=== PATIENT | male | born 1955 | race Caucasian/White ===

== ENCOUNTER 2017-10-09 16:48 | Emergency (ER) | payer MEDICARE, OTHER ==
[~2017-10-09] VITALS: Ht 188 cm; Wt 69.1 kg
[~2017-10-09 16:48] MED LIST: ACET325T14 PO; ACET325T26 PO; ACID1GRA3 PO; ACID1TAB3 PO; ACID1TAB7 PO; ACIDOPHILUS PROB1 MG PO; AMLO10TA2 PO; AMLO5TAB2 PO; AMOX1TAB64 PO; ASCO10004 PO; ATOR40TA PO; BISA10SU2 PR; BUME2TAB PO; CARV-39 PO; CEFT1VIA20 IM; CHLO25TA4 PO; CLON0.2T PO; CLON0.3T47 PO; DAPT500V6 IV; DARB100V SQ; DARB60DI SC; DARB60VI SC; DOCU100C33 PO; DOXY100C PO; ERTA1VIA IM; ERTA1VIA IV; FAMO20TA7 PO; GABA-826 PO; HEPA50002 SQ; HEPA500024 SC; HEPA50004 SQ; HIGH BLOOD PRESSURE; HYDR-3237 PO; HYDR-3240 PO; HYDR-3341 PO; HYDR-3342 PO; HYDR-3343 PO; HYDR20TA22 PO; INSU100C5 SQ-INSULIN; INSU100I28 SQ; INSU100V13 SQ; LACT-103 PO; LISI-170 PO; LOSA100T2 PO; METF500T4 PO; MINO10TA PO; ONDA4TAB7 PO; PANT40TA3 PO; PANT40TA5 PO; POLY17PO5 PO; POTA20TA14 PO; SEVE800T8 PO; SPIR50TA PO; SULF1TAB24 PO; TAMS-11 PO; TAMS0.4C2 PO; TRAM50TA2 PO; VANC125C2 PO; VANC1VIA3 PO; ZOLP5TAB6 PO; [UNRECOGNIZED DRUG - CODE] IV; [UNRECOGNIZED DRUG - CODE] XX
[2017-10-09 20:28] VITALS: BP 170/74
[2017-10-09] MEDS ORDERED: OXYcodone/APAP 5/325MG TABLET ONE (20:28)
[2017-10-09] MEDS ORDERED: DIAZEPAM 5 MG TABLET ONE (20:28)
[2017-10-09] MEDS ORDERED: DIAZEPAM 5 MG TABLET PO ONE (20:30)
[2017-10-09] MEDS ORDERED: OXYcodone/APAP 5/325MG TABLET PO ONE (20:30)
== END 2017-10-09 22:30 | disposition home or self-care (01) ==
LOC: ED 19:42
DX: S43.102A Unspecified dislocation of left acromioclavicular joint, initial encounter (principal); I10 Essential (primary) hypertension; E11.9 Type 2 diabetes mellitus without complications; G89.29 Other chronic pain; M25.512 Pain in left shoulder; N40.0 Benign prostatic hyperplasia without lower urinary tract symptoms; Z99.2 Dependence on renal dialysis; W22.8XXA Striking against or struck by other objects, initial encounter; Y93.89 Activity, other specified; Y99.8 Other external cause status; Y92.89 Other specified places as the place of occurrence of the external cause
CPT/HCPCS: 72072; 99284

== ENCOUNTER 2018-01-23 10:57 | Emergency (ER) | payer OTHER ==
[~2018-01-23] VITALS: Ht 188 cm; Wt 70.0 kg
[2018-01-23] MEDS ORDERED: CALC667C PO (11:28)
[2018-01-23] MEDS ORDERED: FINA5TAB PO (11:28)
[2018-01-23] MEDS ORDERED: HYDR-3240 PO (11:28)
[2018-01-23] MEDS ORDERED: METH4TAB7 PO (11:28)
[2018-01-23] MEDS ORDERED: DICL100G19 EXT (11:28)
[2018-01-23] MEDS ORDERED: NUT.237L71 PO (11:28)
[2018-01-23 11:53] LABS: BASOPHILS # (AUTO) 0.02 x10^3/uL (0-0.1); BASOPHILS % (AUTO) 0 % (0-1); EOSINOPHILS % (AUTO) 0 % (1-7); LYMPHOCYTES # (AUTO) 0.88 x10^3/uL (1-3.4); LYMPHOCYTES % (AUTO) 9 % (22-44); MD NO; MEAN CORPUSCULAR HEMOGLOBIN 32.1 pg (27.5-34.5); MEAN CORPUSCULAR HGB CONC 33.3 g/dL (33.2-36.2); MEAN CORPUSCULAR VOLUME 96.4 fL (81-97); MEAN PLATELET VOLUME 6.6 fL (7.4-10.4); MONOCYTES # (AUTO) 0.33 x10^3/uL (0.2-0.8); MONOCYTES % (AUTO) 3 % (2-9); NEUTROPHILS # (AUTO) 8.47 x10^3/uL (1.8-6.8); NEUTROPHILS % (AUTO) 87 % (42-75); PLATELET COUNT 395 x10^3/uL (130-400); RED BLOOD COUNT 3.53 x10^6/uL (4.38-5.82); RED CELL DISTRIBUTION WIDTH 13.6 % (9.4-14.8)
[2018-01-23] MEDS ORDERED: SODIUM CHLORIDE 0.9% 1,000ML IVBOLUS ONE (12:00)
[2018-01-23] MEDS ORDERED: SODIUM CHLORIDE FLUSH 10ML SYR IVF ONE (12:00)
[2018-01-23 12:02] LABS: INTERNATIONAL NORMALIZED RATIO 1.04 (0.93-1.1); PROTHROMBIN TIME 10.7 Seconds (9.6-11.5)
[2018-01-23 12:05] LABS: ALANINE AMINOTRANSFERASE 18 U/L (12-78); ALBUMIN 3.4 g/dL (3.4-5.0); ANION GAP 12 mmol/L (5-15); CALCIUM 8.6 mg/dL (8.5-10.1); CHLORIDE 94 mmol/L (98-107); CREATININE 4.49 mg/dL (0.7-1.3)
[2018-01-23 12:07] LABS: ALKALINE PHOSPHATASE 71 U/L (45-117); BILIRUBIN,TOTAL 0.3 mg/dL (0.2-1.0); TOTAL PROTEIN 7.5 g/dL (6.4-8.2)
[2018-01-23 12:07] LABS: CULTURE INDICATED? YES; MICROSCOPIC INDICATED
[2018-01-23 16:38] VITALS: BP 154/69
== END 2018-01-23 17:44 | disposition home or self-care (01) ==
LOC: ED 13:22
DX: E11.22 Type 2 diabetes mellitus with diabetic chronic kidney disease (principal); I13.0 Hypertensive heart and chronic kidney disease with heart failure and stage 1 through stage 4 chronic kidney disease, or unspecified chronic kidney disease; N18.9 Chronic kidney disease, unspecified; M06.9 Rheumatoid arthritis, unspecified; I95.9 Hypotension, unspecified; E11.21 Type 2 diabetes mellitus with diabetic nephropathy; R82.99 Other abnormal findings in urine
CPT/HCPCS: 36415; 80053; 81001; 83605; 85025; 85610; 85730; 86850; 86900; 87086; 93005; 99285

== ENCOUNTER 2018-10-08 11:28 | Inpatient (IN) | payer MEDICARE, MEDICAID ==
[~2018-10-08] VITALS: Ht 188 cm; Wt 77.2 kg
[~2018-10-08 11:28] MED LIST changes: +AMLO-150 PO; -AMLO10TA2 PO; +AMLO10TA6 PO; -AMLO5TAB2 PO; +CALC667C PO; +DICL100G19 EXT; +FINA5TAB PO; +METF500T17 PO; -METF500T4 PO; +METH4TAB7 PO; +NUT.237L71 PO
[2018-10-08] MEDS ORDERED: ONDANSETRON 2MG/ML, 2ML IVPush ONE (12:00)
[2018-10-08] MEDS ORDERED: SODIUM CHLORIDE 0.9% 1,000ML IVBOLUS ONE (12:00)
[2018-10-08] MEDS ORDERED: ONDANSETRON 2MG/ML, 2ML ONE (12:01)
[2018-10-08] MEDS ORDERED: MORPHINE SULFATE 4 MG/ML, 1ML ONE ×2 (12:01→13:23)
[2018-10-08] MEDS: MORPHINE SULFATE 4 MG/ML, 1ML IVPush PRN ×2 (12:08→13:29)
--- NOTE | 2018-10-08 12:20 | NUR ---
patient ALVIN XAVIER from the [facility] home. at approx 0390 today he developed RUQ and RLQ sharp abdominal pain, N/V/D. 4x episodes of emesis, one diarrhea, no blood noted in these. 4 mg PO zofran given by EMS, at this time this RN has started IV, medicated per DEC, 500 mL NS bolus running wide open, patient safe in [facility] with call light in reach and VSS after putting patient on 2L of oxygen via NC. patient only required oxygen after morphine admin. no additional needs at this time.
[2018-10-08 12:34] LABS: BASOPHILS # (AUTO) 0.05 x10^3/uL (0-0.1); BASOPHILS % (AUTO) 0 % (0-1); EOSINOPHILS # (AUTO) 0.44 x10^3/uL (0-0.4); EOSINOPHILS % (AUTO) 4 % (1-7); LYMPHOCYTES # (AUTO) 1.39 x10^3/uL (1-3.4); LYMPHOCYTES % (AUTO) 12 % (22-44); MD NO; MEAN CORPUSCULAR HEMOGLOBIN 32.5 pg (27.5-34.5); MEAN CORPUSCULAR HGB CONC 33.6 g/dL (33.2-36.2); MEAN CORPUSCULAR VOLUME 96.7 fL (81-97); MEAN PLATELET VOLUME 7.1 fL (7.4-10.4); MONOCYTES # (AUTO) 0.86 x10^3/uL (0.2-0.8); MONOCYTES % (AUTO) 7 % (2-9); NEUTROPHILS # (AUTO) 9.26 x10^3/uL (1.8-6.8); NEUTROPHILS % (AUTO) 77 % (42-75); PLATELET COUNT 314 x10^3/uL (130-400); RED BLOOD COUNT 3.92 x10^6/uL (4.38-5.82); RED CELL DISTRIBUTION WIDTH 14.1 % (9.4-14.8)
[2018-10-08 12:43] LABS: ALANINE AMINOTRANSFERASE 18 U/L (12-78); ANION GAP 8 mmol/L (5-15); CALCIUM 9.6 mg/dL (8.5-10.1); CHLORIDE 102 mmol/L (98-107); CREATININE 4.68 mg/dL (0.7-1.3); PROTHROMBIN TIME 10.6 Seconds (9.6-11.5)
[2018-10-08 12:46] LABS: ALKALINE PHOSPHATASE 78 U/L (45-117); BILIRUBIN,TOTAL 0.4 mg/dL (0.2-1.0)
--- NOTE | 2018-10-08 13:30 | NUR ---
patient medicated with 2nd morphine dose per DEC, going to CT scan now via gurney, intermittent nausea again prior to 2nd morphine dose. 500mL bolus finished, hypertensive 200/90, updated.
[2018-10-08] MEDS ORDERED: PIPERACILLIN/TAZO/PMX 3.375GM 50 ML ONE (14:52)
[2018-10-08] MEDS ORDERED: METOCLOPRAMIDE 5 MG/ML, 2ML ONE (14:52)
[2018-10-08] MEDS ORDERED: SODIUM CHLORIDE 0.9% 1,000 ML IV SCH (15:00)
[2018-10-08] MEDS ORDERED: PIPERACILLIN/TAZO/PMX 3.375GM 50 ML IV ONE (15:00)
[2018-10-08] MEDS ORDERED: OMNIPAQUE 350 MG/ML, 100ML BOTTLE ONE (15:10)
--- NOTE | 2018-10-08 15:28 | NUR ---
report to SILVINO hui, patient updated of transfer plan, no acute changes now, RTG status.
[2018-10-08 15:44] LABS: CLOSTRIDIUM DIFFICILE ANTIGEN POSITIVE; CLOSTRIDIUM DIFFICILE TOXIN NEGATIVE (Negative)
--- NOTE | 2018-10-08 15:50 | NUR ---
lab called to report C. Diff antigen positive, toxin negative.
[2018-10-08 16:24] VITALS: BP 152/79
[2018-10-08] MEDS: SODIUM CHLORIDE 0.9% 1,000 ML IV SCH (17:43)
[2018-10-08] MEDS: VANCOMYCIN 50 MG/ML ORAL SUSP PO SCH ×2 (17:43→22:37)
[2018-10-08] MEDS: METRONIDAZOLE PMX 500MG/100ML 100 ML IV SCH (17:43)
[2018-10-08 20:11] VITALS: BP 153/76
[2018-10-08] MEDS: PANTOPRAZOLE 40 MG IV IVPush SCH (20:49)
[2018-10-09] MEDS: METRONIDAZOLE PMX 500MG/100ML 100 ML IV SCH ×3 (01:22→17:27)
[2018-10-09] MEDS: SODIUM CHLORIDE 0.9% 1,000 ML IV SCH ×3 (01:22→19:29)
[2018-10-09 01:24] VITALS: BP 151/77
[2018-10-09] MEDS ORDERED: MORPHINE SULFATE 4 MG/ML, 1ML ONE (01:30)
[2018-10-09] MEDS: morphine SULFATE 10 MG/ML, 1ML IVPush PRN ×2 (01:34→22:30)
[2018-10-09] MEDS: VANCOMYCIN 50 MG/ML ORAL SUSP PO SCH ×4 (04:43→22:17)
[2018-10-09 06:10] LABS: CHLORIDE 106 mmol/L (98-107)
[2018-10-09 06:11] LABS: BASOPHILS # (AUTO) 0.05 x10^3/uL (0-0.1); BASOPHILS % (AUTO) 1 % (0-1); EOSINOPHILS # (AUTO) 0.35 x10^3/uL (0-0.4); EOSINOPHILS % (AUTO) 3 % (1-7); LYMPHOCYTES # (AUTO) 1.69 x10^3/uL (1-3.4); LYMPHOCYTES % (AUTO) 16 % (22-44); MD NO; MEAN CORPUSCULAR HEMOGLOBIN 32.3 pg (27.5-34.5); MEAN CORPUSCULAR HGB CONC 33.3 g/dL (33.2-36.2); MEAN CORPUSCULAR VOLUME 97.1 fL (81-97); MEAN PLATELET VOLUME 7.1 fL (7.4-10.4); MONOCYTES # (AUTO) 0.84 x10^3/uL (0.2-0.8); MONOCYTES % (AUTO) 8 % (2-9); NEUTROPHILS # (AUTO) 7.71 x10^3/uL (1.8-6.8); NEUTROPHILS % (AUTO) 72 % (42-75); PLATELET COUNT 262 x10^3/uL (130-400); RED BLOOD COUNT 3.26 x10^6/uL (4.38-5.82); RED CELL DISTRIBUTION WIDTH 13.9 % (9.4-14.8)
[2018-10-09 06:17] LABS: ALANINE AMINOTRANSFERASE 13 U/L (12-78); ALBUMIN 3.3 g/dL (3.4-5.0); ALKALINE PHOSPHATASE 63 U/L (45-117); ANION GAP 9 mmol/L (5-15); BILIRUBIN,TOTAL 0.4 mg/dL (0.2-1.0); CALCIUM 8.4 mg/dL (8.5-10.1); CREATININE 4.91 mg/dL (0.7-1.3); TOTAL PROTEIN 6.7 g/dL (6.4-8.2)
[2018-10-09 09:17] VITALS: BP 151/65
[2018-10-09] MEDS: PANTOPRAZOLE 40 MG IV IVPush SCH ×2 (09:21→22:17)
[2018-10-09 13:44] LABS: ABSOLUTE RETICS # 0.039 x10^6/uL (0.5-1.5); RED BLOOD COUNT 2.97 x10^6/uL (4.38-5.82); RETICULOCYTE COUNT % 1.33 % (0.5-1.5)
[2018-10-09] MEDS ORDERED: DARBEPOETIN 100 MCG/ML SQ SCH (14:00)
[2018-10-09] MEDS ORDERED: ARANESP 25 MCG/ML **ESRD SQ SCH (14:00)
[2018-10-09 14:17] VITALS: BP 128/63
[2018-10-09 19:01] VITALS: BP 147/71
[2018-10-10] MEDS: METRONIDAZOLE PMX 500MG/100ML 100 ML IV SCH ×3 (01:07→16:48)
[2018-10-10] MEDS: morphine SULFATE 10 MG/ML, 1ML IVPush PRN ×3 (01:40→17:00)
[2018-10-10 01:55] VITALS: BP 146/65
[2018-10-10] MEDS: SODIUM CHLORIDE 0.9% 1,000 ML IV SCH ×3 (03:50→20:38)
[2018-10-10] MEDS: VANCOMYCIN 50 MG/ML ORAL SUSP PO SCH ×4 (03:58→23:24)
[2018-10-10 05:54] LABS: ALBUMIN 2.9 g/dL (3.4-5.0); ANION GAP 5 mmol/L (5-15); CALCIUM 7.7 mg/dL (8.5-10.1); CHLORIDE 104 mmol/L (98-107)
[2018-10-10 05:55] LABS: BASOPHILS # (AUTO) 0.04 x10^3/uL (0-0.1); BASOPHILS % (AUTO) 0 % (0-1); EOSINOPHILS # (AUTO) 0.54 x10^3/uL (0-0.4); EOSINOPHILS % (AUTO) 6 % (1-7); LYMPHOCYTES # (AUTO) 1.65 x10^3/uL (1-3.4); LYMPHOCYTES % (AUTO) 20 % (22-44); MD NO; MEAN CORPUSCULAR HEMOGLOBIN 32.7 pg (27.5-34.5); MEAN CORPUSCULAR HGB CONC 34.1 g/dL (33.2-36.2); MONOCYTES # (AUTO) 0.75 x10^3/uL (0.2-0.8); MONOCYTES % (AUTO) 9 % (2-9); NEUTROPHILS # (AUTO) 5.44 x10^3/uL (1.8-6.8); NEUTROPHILS % (AUTO) 65 % (42-75); PLATELET COUNT 244 x10^3/uL (130-400); RED BLOOD COUNT 2.94 x10^6/uL (4.38-5.82); RED CELL DISTRIBUTION WIDTH 13.7 % (9.4-14.8)
[2018-10-10 05:59] LABS: ALANINE AMINOTRANSFERASE 14 U/L (12-78); ALKALINE PHOSPHATASE 55 U/L (45-117); BILIRUBIN,TOTAL 0.4 mg/dL (0.2-1.0); CREATININE 3.28 mg/dL (0.7-1.3)
[2018-10-10 08:23] VITALS: BP 180/73
[2018-10-10] MEDS: PANTOPRAZOLE 40 MG IV IVPush SCH ×2 (09:33→20:38)
[2018-10-10 13:36] VITALS: BP 179/64
[2018-10-10] MEDS: hydrALAzine 20 MG/ML, 1ML IVPush PRN (16:48)
[2018-10-10] MEDS: FERROUS SULFATE 325 MG TABLET PO SCH (16:48)
[2018-10-10 19:46] VITALS: BP 150/65
[2018-10-10] MEDS: ONDANSETRON 2MG/ML, 2ML IVPush PRN (21:12)
[2018-10-11] MEDS: METRONIDAZOLE PMX 500MG/100ML 100 ML IV SCH ×3 (01:02→16:40)
[2018-10-11 04:40] VITALS: BP 188/86
[2018-10-11] MEDS: hydrALAzine 20 MG/ML, 1ML IVPush PRN ×2 (04:46→13:21)
[2018-10-11] MEDS: VANCOMYCIN 50 MG/ML ORAL SUSP PO SCH ×4 (05:03→22:02)
[2018-10-11] MEDS: SODIUM CHLORIDE 0.9% 1,000 ML IV SCH ×2 (05:03→16:40)
[2018-10-11 05:22] LABS: BASOPHILS # (AUTO) 0.04 x10^3/uL (0-0.1); BASOPHILS % (AUTO) 1 % (0-1); EOSINOPHILS % (AUTO) 4 % (1-7); LYMPHOCYTES # (AUTO) 1.32 x10^3/uL (1-3.4); LYMPHOCYTES % (AUTO) 18 % (22-44); MD NO; MEAN CORPUSCULAR HEMOGLOBIN 33.2 pg (27.5-34.5); MEAN CORPUSCULAR HGB CONC 34.5 g/dL (33.2-36.2); MEAN CORPUSCULAR VOLUME 96.3 fL (81-97); MEAN PLATELET VOLUME 6.9 fL (7.4-10.4); MONOCYTES # (AUTO) 0.63 x10^3/uL (0.2-0.8); MONOCYTES % (AUTO) 9 % (2-9); NEUTROPHILS # (AUTO) 4.89 x10^3/uL (1.8-6.8); NEUTROPHILS % (AUTO) 68 % (42-75); PLATELET COUNT 257 x10^3/uL (130-400); RED BLOOD COUNT 3.05 x10^6/uL (4.38-5.82); RED CELL DISTRIBUTION WIDTH 14.3 % (9.4-14.8)
[2018-10-11 05:30] LABS: ANION GAP 7 mmol/L (5-15); CALCIUM 7.7 mg/dL (8.5-10.1); CHLORIDE 107 mmol/L (98-107)
[2018-10-11 05:33] LABS: ALANINE AMINOTRANSFERASE 10 U/L (12-78); ALKALINE PHOSPHATASE 57 U/L (45-117); BILIRUBIN,TOTAL 0.6 mg/dL (0.2-1.0); CREATININE 4.31 mg/dL (0.7-1.3)
[2018-10-11 07:46] VITALS: BP 163/73
[2018-10-11] MEDS: CALCITRIOL 0.5 MCG CAPSULE PO SCH (08:39)
[2018-10-11] MEDS: FERROUS SULFATE 325 MG TABLET PO SCH ×3 (08:40→16:40)
[2018-10-11] MEDS: ONDANSETRON 2MG/ML, 2ML IVPush PRN ×3 (08:40→22:02)
[2018-10-11] MEDS: PANTOPRAZOLE 40 MG IV IVPush SCH ×2 (08:40→22:01)
[2018-10-11 12:38] VITALS: BP 174/90
[2018-10-11 16:39] VITALS: BP 169/79
[2018-10-11] MEDS: METOPROLOL TARTRATE 50 MG TABLET PO SCH (16:40)
[2018-10-11 19:30] VITALS: BP 167/79
[2018-10-12] VITALS (10 sets, daily range): BP systolic 155–189; BP diastolic 70–86
[2018-10-12] MEDS: METRONIDAZOLE PMX 500MG/100ML 100 ML IV SCH ×3 (01:41→17:11)
[2018-10-12] MEDS: hydrALAzine 20 MG/ML, 1ML IVPush PRN ×2 (03:00→13:41)
[2018-10-12] MEDS: ONDANSETRON 2MG/ML, 2ML IVPush PRN ×3 (04:51→20:40)
[2018-10-12] MEDS: morphine SULFATE 10 MG/ML, 1ML IVPush PRN ×4 (04:51→20:40)
[2018-10-12] MEDS: VANCOMYCIN 50 MG/ML ORAL SUSP PO SCH ×4 (05:01→22:36)
[2018-10-12] MEDS: METOPROLOL TARTRATE 50 MG TABLET PO SCH ×2 (05:02→17:12)
[2018-10-12] MEDS: SODIUM CHLORIDE 0.9% 1,000 ML IV SCH (05:02)
[2018-10-12 05:57] LABS: BASOPHILS # (AUTO) 0.04 x10^3/uL (0-0.1); BASOPHILS % (AUTO) 1 % (0-1); EOSINOPHILS # (AUTO) 0.04 x10^3/uL (0-0.4); EOSINOPHILS % (AUTO) 1 % (1-7); LYMPHOCYTES # (AUTO) 0.93 x10^3/uL (1-3.4); LYMPHOCYTES % (AUTO) 12 % (22-44); MD NO; MEAN CORPUSCULAR HEMOGLOBIN 33.1 pg (27.5-34.5); MEAN CORPUSCULAR HGB CONC 34.2 g/dL (33.2-36.2); MEAN CORPUSCULAR VOLUME 96.7 fL (81-97); MONOCYTES # (AUTO) 0.45 x10^3/uL (0.2-0.8); MONOCYTES % (AUTO) 6 % (2-9); NEUTROPHILS # (AUTO) 6.25 x10^3/uL (1.8-6.8); NEUTROPHILS % (AUTO) 81 % (42-75); PLATELET COUNT 262 x10^3/uL (130-400); RED BLOOD COUNT 3.25 x10^6/uL (4.38-5.82); RED CELL DISTRIBUTION WIDTH 14.1 % (9.4-14.8)
[2018-10-12 06:03] LABS: ANION GAP 13 mmol/L (5-15); CALCIUM 8.1 mg/dL (8.5-10.1); CHLORIDE 108 mmol/L (98-107)
[2018-10-12] MEDS: CALCITRIOL 0.5 MCG CAPSULE PO SCH (08:16)
[2018-10-12] MEDS: FERROUS SULFATE 325 MG TABLET PO SCH ×3 (08:16→17:11)
[2018-10-12] MEDS: PANTOPRAZOLE 40 MG IV IVPush SCH ×2 (08:16→20:40)
[2018-10-13] VITALS (8 sets, daily range): BP systolic 147–191; BP diastolic 55–89
[2018-10-13] MEDS: METRONIDAZOLE PMX 500MG/100ML 100 ML IV SCH ×2 (01:27→09:42)
[2018-10-13] MEDS: morphine SULFATE 10 MG/ML, 1ML IVPush PRN ×4 (03:45→20:18)
[2018-10-13] MEDS: ONDANSETRON 2MG/ML, 2ML IVPush PRN ×2 (03:45→15:04)
[2018-10-13] MEDS: hydrALAzine 20 MG/ML, 1ML IVPush PRN ×4 (03:59→20:18)
[2018-10-13] MEDS: VANCOMYCIN 50 MG/ML ORAL SUSP PO SCH ×4 (04:00→21:51)
[2018-10-13] MEDS: METOPROLOL TARTRATE 50 MG TABLET PO SCH (05:20)
[2018-10-13 05:43] LABS: BASOPHILS # (AUTO) 0.03 x10^3/uL (0-0.1); BASOPHILS % (AUTO) 0 % (0-1); EOSINOPHILS # (AUTO) 0.04 x10^3/uL (0-0.4); EOSINOPHILS % (AUTO) 1 % (1-7); LYMPHOCYTES # (AUTO) 1.06 x10^3/uL (1-3.4); LYMPHOCYTES % (AUTO) 14 % (22-44); MD NO; MEAN CORPUSCULAR HEMOGLOBIN 33.1 pg (27.5-34.5); MEAN CORPUSCULAR HGB CONC 34.5 g/dL (33.2-36.2); MEAN CORPUSCULAR VOLUME 95.9 fL (81-97); MEAN PLATELET VOLUME 7.1 fL (7.4-10.4); MONOCYTES # (AUTO) 0.74 x10^3/uL (0.2-0.8); MONOCYTES % (AUTO) 10 % (2-9); NEUTROPHILS # (AUTO) 5.72 x10^3/uL (1.8-6.8); NEUTROPHILS % (AUTO) 75 % (42-75); PLATELET COUNT 269 x10^3/uL (130-400); RED BLOOD COUNT 3.25 x10^6/uL (4.38-5.82); RED CELL DISTRIBUTION WIDTH 14.1 % (9.4-14.8)
[2018-10-13 06:02] LABS: CHLORIDE 104 mmol/L (98-107)
[2018-10-13 06:09] LABS: ALANINE AMINOTRANSFERASE 13 U/L (12-78); ALBUMIN 3.1 g/dL (3.4-5.0); ALKALINE PHOSPHATASE 50 U/L (45-117); ANION GAP 10 mmol/L (5-15); BILIRUBIN,TOTAL 0.4 mg/dL (0.2-1.0); CREATININE 3.48 mg/dL (0.7-1.3); TOTAL PROTEIN 6.1 g/dL (6.4-8.2)
[2018-10-13] MEDS: PANTOPRAZOLE 40 MG IV IVPush SCH ×2 (09:25→20:04)
[2018-10-13] MEDS: FERROUS SULFATE 325 MG TABLET PO SCH ×3 (09:26→16:51)
[2018-10-13] MEDS: CALCITRIOL 0.5 MCG CAPSULE PO SCH (09:26)
[2018-10-13] MEDS ORDERED: OMEP-110 PO (10:51)
[2018-10-13] MEDS ORDERED: VANC1VIA3 PO (10:51)
[2018-10-13] MEDS ORDERED: FERR-51 PO (10:51)
[2018-10-13] MEDS ORDERED: RIFAXIMIN PO (10:51)
[2018-10-13] MEDS ORDERED: METO50TA82 PO (10:51)
[2018-10-13] MEDS ORDERED: CALC0.5C9 PO (10:51)
[2018-10-13] MEDS: LOSARTAN 50MG TABLET PO SCH (11:02)
[2018-10-13] MEDS: METOPROLOL TARTRATE 100 MG TABLET PO SCH (16:51)
[2018-10-13] MEDS ORDERED: ACETAMINOPHEN 325 MG TABLET PO PRN (17:00)
[2018-10-13] MEDS: RIFAXIMIN 550 MG TABLET PO SCH (20:04)
[2018-10-13] MEDS: AMLODIPINE 5 MG TABLET PO SCH (20:04)
[2018-10-14] MEDS ORDERED: MORPHINE SULFATE 4 MG/ML, 1ML ONE (00:01)
[2018-10-14] MEDS: morphine SULFATE 10 MG/ML, 1ML IVPush PRN ×3 (00:04→10:10)
[2018-10-14] MEDS: VANCOMYCIN 50 MG/ML ORAL SUSP PO SCH ×4 (04:43→22:18)
[2018-10-14 04:44] VITALS: BP 160/77
[2018-10-14] MEDS: METOPROLOL TARTRATE 100 MG TABLET PO SCH ×2 (04:48→17:05)
[2018-10-14 06:17] LABS: BASOPHILS # (AUTO) 0.04 x10^3/uL (0-0.1); BASOPHILS % (AUTO) 1 % (0-1); EOSINOPHILS % (AUTO) 1 % (1-7); LYMPHOCYTES # (AUTO) 0.81 x10^3/uL (1-3.4); LYMPHOCYTES % (AUTO) 10 % (22-44); MD NO; MEAN CORPUSCULAR HEMOGLOBIN 32.9 pg (27.5-34.5); MEAN CORPUSCULAR HGB CONC 34.1 g/dL (33.2-36.2); MEAN CORPUSCULAR VOLUME 96.6 fL (81-97); MEAN PLATELET VOLUME 6.9 fL (7.4-10.4); MONOCYTES # (AUTO) 0.68 x10^3/uL (0.2-0.8); MONOCYTES % (AUTO) 8 % (2-9); NEUTROPHILS # (AUTO) 6.38 x10^3/uL (1.8-6.8); NEUTROPHILS % (AUTO) 80 % (42-75); PLATELET COUNT 260 x10^3/uL (130-400); RED BLOOD COUNT 3.09 x10^6/uL (4.38-5.82); RED CELL DISTRIBUTION WIDTH 13.9 % (9.4-14.8)
[2018-10-14 06:38] LABS: ALBUMIN 2.9 g/dL (3.4-5.0); ANION GAP 10 mmol/L (5-15); CHLORIDE 103 mmol/L (98-107)
[2018-10-14 06:42] LABS: ALANINE AMINOTRANSFERASE 12 U/L (12-78); ALKALINE PHOSPHATASE 46 U/L (45-117); BILIRUBIN,TOTAL 0.4 mg/dL (0.2-1.0); CREATININE 3.96 mg/dL (0.7-1.3); TOTAL PROTEIN 5.7 g/dL (6.4-8.2)
[2018-10-14 08:30] VITALS: BP 147/72
[2018-10-14] MEDS: CALCITRIOL 0.5 MCG CAPSULE PO SCH (09:16)
[2018-10-14] MEDS: AMLODIPINE 5 MG TABLET PO SCH ×2 (09:16→22:18)
[2018-10-14] MEDS: RIFAXIMIN 550 MG TABLET PO SCH ×2 (09:16→22:17)
[2018-10-14] MEDS: PANTOPRAZOLE 40 MG IV IVPush SCH ×2 (09:16→22:18)
[2018-10-14] MEDS: FERROUS SULFATE 325 MG TABLET PO SCH ×3 (09:16→17:04)
[2018-10-14] MEDS: LOSARTAN 50MG TABLET PO SCH (09:16)
[2018-10-14] MEDS ORDERED: POTASSIUM CHLORIDE 40 MEQ in SODIUM CHLORIDE 0.9% 500 ML IV ONE (10:00)
[2018-10-14] MEDS: PSYLLIUM PACKET PO PRN (10:10)
[2018-10-14] MEDS ORDERED: AMLO-150 PO (10:57)
[2018-10-14] MEDS ORDERED: HYDR-3240 PO (11:06)
[2018-10-14] MEDS ORDERED: TRAM50TA2 PO (11:06)
[2018-10-14] MEDS ORDERED: METO-99 PO (11:30)
[2018-10-14] MEDS: ONDANSETRON 2MG/ML, 2ML IVPush PRN ×2 (13:19→22:17)
[2018-10-14 14:22] VITALS: BP 176/77
[2018-10-14 20:56] VITALS: BP 153/99
[2018-10-15 01:20] VITALS: BP 181/73
[2018-10-15] MEDS: hydrALAzine 20 MG/ML, 1ML IVPush PRN (01:43)
[2018-10-15] MEDS: morphine SULFATE 10 MG/ML, 1ML IVPush PRN ×2 (01:43→09:00)
[2018-10-15 03:29] VITALS: BP 154/67
[2018-10-15] MEDS: ONDANSETRON 2MG/ML, 2ML IVPush PRN (03:30)
[2018-10-15] MEDS: VANCOMYCIN 50 MG/ML ORAL SUSP PO SCH ×3 (04:28→16:09)
[2018-10-15] MEDS: METOPROLOL TARTRATE 100 MG TABLET PO SCH ×2 (06:52→17:16)
[2018-10-15 07:30] VITALS: BP 167/75
[2018-10-15] MEDS: LOSARTAN 50MG TABLET PO SCH (09:00)
[2018-10-15] MEDS: PSYLLIUM PACKET PO PRN (09:00)
[2018-10-15] MEDS: PANTOPRAZOLE 40 MG IV IVPush SCH (09:00)
[2018-10-15] MEDS: RIFAXIMIN 550 MG TABLET PO SCH (09:01)
[2018-10-15] MEDS: AMLODIPINE 5 MG TABLET PO SCH (09:01)
[2018-10-15] MEDS: CALCITRIOL 0.5 MCG CAPSULE PO SCH (09:01)
[2018-10-15] MEDS: FERROUS SULFATE 325 MG TABLET PO SCH ×3 (09:01→17:16)
[2018-10-15 13:30] VITALS: BP 173/69
== END 2018-10-15 17:55 | DRG 393 ==
LOC: ED 13:20 → EDIP 14:43 → SUATTDRO 15:14 → 4NOR 16:11
PROVIDERS: ADMIT Internal Medicine; ATTEND Internal Medicine
PROC: 5A1D70Z Performance of Urinary Filtration, Intermittent, Less than 6 Hours Per Day (ICD-10-PCS; principal; 2018-10-09)
PROC: 0D9P70Z Drainage of Rectum with Drainage Device, Via Natural or Artificial Opening (ICD-10-PCS; 2018-10-09)
PROC: 5A1D70Z Performance of Urinary Filtration, Intermittent, Less than 6 Hours Per Day (ICD-10-PCS; 2018-10-12)
PROC: 5A1D70Z Performance of Urinary Filtration, Intermittent, Less than 6 Hours Per Day (ICD-10-PCS; 2018-10-14)
DX: K63.89 Other specified diseases of intestine (principal); N18.6 End stage renal disease; K59.39 Other megacolon; I13.2 Hypertensive heart and chronic kidney disease with heart failure and with stage 5 chronic kidney disease, or end stage renal disease; E46 Unspecified protein-calorie malnutrition; I50.30 Unspecified diastolic (congestive) heart failure; D64.9 Anemia, unspecified; E11.22 Type 2 diabetes mellitus with diabetic chronic kidney disease; E78.5 Hyperlipidemia, unspecified; I25.10 Atherosclerotic heart disease of native coronary artery without angina pectoris; K21.9 Gastro-esophageal reflux disease without esophagitis; M06.9 Rheumatoid arthritis, unspecified; N25.0 Renal osteodystrophy; N40.1 Benign prostatic hyperplasia with lower urinary tract symptoms; Z99.2 Dependence on renal dialysis; Z68.21 Body mass index [BMI] 21.0-21.9, adult; I25.2 Old myocardial infarction; Z93.59 Other cystostomy status
CPT/HCPCS: 36415; 74176; 74177; 80048; 80053; 82306; 82310; 82330; 82728; 83540; 83550; 83605; 83690; 83735; 83970; 84100; 84443; 84550; 85025; 85045; 85610; 85730; 86704; 86706; 86803; 87040; 87324; 87340; 87493; 89055; 96374; 96375; 96376; G0378; J0882; J2405; J2543; J3370; J3480; Q9967; C9113; J0360; J2270; J7030; J7040